=== PATIENT | male | born 1965 | race Caucasian/White ===

== ENCOUNTER 2021-07-09 11:37 | Emergency (ER) | payer OTHER, SELFPAY ==
--- NOTE | ~2021-07-09 | XR_ITS ---
EXAMINATION: XR HAND, LEFT CLINICAL INFORMATION: Trauma COMPARISON: Previous x-ray October 2013 TECHNIQUE: PA, lateral, and oblique views of the left hand. FINDINGS: The bones and soft tissues are normal. No fracture. Alignment is anatomic. Joint spaces are maintained. No erosions or soft tissue calcifications. XR/XR hand LT 2V IMPRESSION: Normal left hand.
[2021-07-09 11:42] VITALS: BP 130/100; PULSE 89; RESP 18; TEMP 36.6; O2SAT 99; BMI 33.5
--- NOTE | 2021-07-09 14:51 | ED.WOUNDLAC ---
HPI - Wound/Laceration General Chief Complaint: Wound/Laceration Stated Complaint: hand inj at work Time Seen by Provider: 07/09/21 13:48 History of Present Illness HPI narrative: Patient complains of left hand laceration when a drill bits slipped and cut into his hand with a drill at work on the job Related Data Allergies Allergy/AdvReac Type Severity Reaction Status Date / Time No Known Allergies Allergy Unverified 02/15/20 15:05 Review of Systems Review of Systems: Positive for left hand laceration Negatives are no headache no neck pain no back pain no numbness no weakness no tingling no other extremity pains Yes all other systems are reviewed and are negative PMFSH Past Medical History Source: nursing notes reviewed Social History Social History Advance Directives: No Advance Directives Information Provided: Yes Physical Exam Vital Signs: Vital Signs: Last Vital Signs Temp 98 F 07/09/21 11:42 Pulse 89 07/09/21 11:42 Resp 18 07/09/21 11:42 BP 130/100 H 07/09/21 11:42 Pulse Ox 99 07/09/21 11:42 BMI result Body Mass Index 33.5 General appearance no acute distress comfortable cooperative Head is normocephalic atraumatic Neck is supple Respiratory no distress Extremities the left hand over the dorsal 5th metacarpal has a 1.5 cm flap round laceration, there is full range of motion and all joints in the hand with normal sensation distal, normal tendon function normal motor function Course Course Course Narrative: Procedure note left hand laceration is cleansed and irrigated with normal saline Anesthesia is 5 cc of 1% lidocaine No foreign bodies were identified The skin was closed with 4 x 5.0 nylon sutures Discharge Plan Discharge Clinical Impression: Laceration Patient Disposition: Home, Self-Care Additional Instructions: Stitches out in 7-10 days at work connection for work related injury Return any time for redness swelling or any sign of infection , either to ER or to work connection You got a tetanus shot today Referrals: [facility] [Provider Group] - 1 week (Stitches out in 7-10 days) Stand Alone Forms: Work/School Release Interventions: ED Discharge Assessment Last Done: 07/09/21 15:13 Discharge Date/Time: 07/09/21 15:14
[2021-07-09] MEDS: Lidocaine HCl 1 % MPF 5 ML VIAL SUBCUT (15:08)
[2021-07-09] MEDS: Diphth,Pertus(ACell),Tet Adult 0.5 ML SYRINGE IM (15:09)
== END 2021-07-09 15:14 | disposition home or self-care (01) ==
PROVIDERS: Emergency Provider Emergency Medicine; PCP Physician Assistant
DX: S61.412A Laceration without foreign body of left hand, initial encounter (principal); W45.8XXA Other foreign body or object entering through skin, initial encounter; Y93.89 Activity, other specified; Y92.9 Unspecified place or not applicable; Y99.0 Civilian activity done for income or pay
CPT/HCPCS: 12001; 73120; 90471; 90715; 99283; 99284

== ENCOUNTER → 2021-07-14 09:27 | Outpatient (BNVA) | payer OTHER, SELFPAY | PROVIDERS: PCP Physician Assistant; Visit Provider Internal Medicine | DX: S61.215A Laceration without foreign body of left ring finger without damage to nail, initial encounter (principal); W27.8XXA Contact with other nonpowered hand tool, initial encounter | CPT/HCPCS: 99203 ==

== ENCOUNTER → 2021-07-18 09:07 | Outpatient (BNVA) | payer OTHER, SELFPAY | PROVIDERS: PCP Physician Assistant; Visit Provider Physician Assistant Medical | DX: S61.215A Laceration without foreign body of left ring finger without damage to nail, initial encounter (principal); W26.9XXA Contact with unspecified sharp object(s), initial encounter | CPT/HCPCS: 99212; 99213 ==

== ENCOUNTER 2022-08-11 10:01 | Emergency (ER) | payer OTHER, SELFPAY ==
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
[2022-08-11 10:07] VITALS: BP 191/86; PULSE 87; PULSE 93; RESP 18; TEMP 36.1; O2SAT 100; O2SAT 98; BMI 34.2
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
== END 2022-08-11 11:51 | disposition home or self-care (01) ==
PROVIDERS: Emergency Provider Emergency Medicine; PCP Physician Assistant
DX: S29.012A Strain of muscle and tendon of back wall of thorax, initial encounter (principal); V03.00XA Pedestrian on foot injured in collision with car, pick-up truck or van in nontraffic accident, initial encounter; M79.18 Myalgia, other site; Y93.29 Activity, other involving ice and snow; Y92.481 Parking lot as the place of occurrence of the external cause; Y99.0 Civilian activity done for income or pay
CPT/HCPCS: 71101; 72072; 99282; 99283

== ENCOUNTER 2023-02-17 09:27 | Outpatient (AMB) | payer OTHER, SELFPAY ==
[2023-02-17 09:30] VITALS: BP 170/90; PULSE 80; RESP 17; O2SAT 98; BMI 34.9
--- NOTE | 2023-02-17 09:30 | A.OFFPC_ITS ---
Vital Signs 02/17/23 09:30 Height 5 ft 8 in Weight 229 lb 4 oz BMI 34.9 BP 170/90 H Blood Pressure Location Lt brachial Position Sitting Respiration 17 Pulse 80 Pulse Source Pulse Oximeter Pulse Oximetry (%) 98 Oxygen Delivery Method Room Air Intake Visit Reasons: New patient-requesting physical Intake Note: Pt is here to re-establish care with PCP, elevated BP today. Overdue for Colonoscopy per [facility]. Specialty Cook Required: No Accompanied by: Self / Same As Patient Allergies No Known Allergies Allergy (Unverified 02/17/23 09:34) Tobacco use date assessed: 02/17/23 Dental Screening Dental Screen Date: 02/17/23 Did you have a dental visit in the last 12 months?: No Did you have a dental problem in the last 6 months where you did not have access to dental care?: No Was dental information given to patient?: Patient has dentist HPI New patient-requesting physical HPI Details Patient is a 57-year-old male here today to reestablish care/annual physicalv Previous PCP was Patient has a past medical history significant for COPD, tobacco dependency. -->Noted elevated blood pressure reading s today in office. Patient believes he has white coat hypertension. We did discuss the possible need of starting antihypertensive medication and patient does understand. Advised to monitor his blood pressure at home with goal blood pressure be below 140/90. .. Tobacco dependency: He does understand he needs to quit smoking. We did discuss the lung cancer screening program though patient is considering this at this time. He reports he has cut down smoking on his own. .. COPD: He does have history of COPD and was on albuterol and Advair inhalers. He does report recently having somewhat of a cough and will like a chest x-ray. He would like to be restarted on his inhalers as well. He also does have a history of obstructive sleep apnea was on a CPAP machine though he reports his CPAP machine broke. He would likely need a new sleep study as it has been years since his previous sleep study. He would like to hold off on evaluating obstructive sleep apnea at this time. Colonoscopy: Willing to do Cologuard. Vaccines: Up-to-date with COVID vaccine, tetanus vaccine, needs pneumonia vaccine PFSH Family History (Updated 02/17/23 @ 09:56 by Dante Hill PA-C) Mother CAD (coronary artery disease) Father CAD (coronary artery disease) Social History (Updated 02/17/23 @ 09:57 by Dante Hill PA-C) Housing: House Alcohol intake: current Alcohol intake frequency: a few times a month Patient Tobacco Use Status: Current everyday Tobacco user Tobacco use type: Cigarette Cigarette Packs Per Day: 1 Cigarettes Per Day: 20 Years Smoked: 30 e-Cigarette/Vaping Use: Never Used service: No Current occupational status: employed 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 1. Little interest or pleasure in doing things: not at all 2. Feeling down, depressed, or hopeless: not at all 3. Trouble falling or staying asleep, or sleeping too much: not at all 4. Feeling tired or having little energy: not at all 5. Poor appetite or overeating: not at all 6. Feeling bad about yourself - or that you are a failure or have let yourself or your family down: not at all 7. Trouble concentrating on things, such as reading the newspaper or watching television: not at all 8. Moving or speaking so slowly that other people could have noticed. Or the opposite - being so fidgety or restless that you have been moving around a lot more than usual: not at all 9. Thoughts that you would be better off or of hurting yourself in some way: not at all Total score: 0 Depression Screening Interpretation: Negative 55603 - PHQ-9 Billing: Yes Source: Developed by Drs. Yuri Aviles, Kristina Hess, Emmanuel Diaz and colleagues, with an educational dillon from [employer]. Thrive Questionnaire Date Thrive assessed: 02/17/23 I am a: Patient What is your living situation today?: I have a steady place to live Within the past 12 months, did the food you bought not last and you didn't have the money to get more?: Never true Within the past 12 months, did you worry whether your food would run out before you got money to buy more?: Never true Do you have trouble paying for medicines?: No Do you have trouble getting transportation to medical appointments?: No Do you have trouble paying your heating and electricity bill?: No Do you have trouble taking care of your child, family member or friend?: No Do you have trouble with day-to-day activities such as bathing, preparing meals, shopping, managing finances, etc.?: No Are you currently unemployed and looking for a job?: No Are you interested in more education?: No Please select the resources that you would like help with: None Currently or been in a relationship where the following occur: no concerns reported AUDIT C Alcohol Use Questionnaire (AUDIT-C) 1. How often do you have a drink containing alcohol?: Monthly or less 2. How many drinks containing alcohol do you have on a typical day when you are drinking?: 1 or 2 3. How often do you have six or more drinks on one occasion?: Never Total Score: 1 SONJA-7 AMB Questionnaire SONJA-7 Date SONJA - 7 assessed: 02/17/23 Feeling nervous, anxious, or on edge: 0 = Not at all Not being able to stop or control worryin = Not at all Worrying too much about different things: 0 = Not at all Trouble relaxin = Not at all Being so restless that it is hard to sit still: 0 = Not at all Becoming easily annoyed or irritable: 0 = Not at all Feeling afraid as if something awful might happen: 0 = Not at all Total SONJA-7 score (0-4 normal; 5-9 mild; 10-14 moderate; 15-21 severe): 0 Source: Developed by Drs. Yuri Aviles, Kristina Hess, Emmanuel Diaz and colleagues, with an educational dillon from [employer]. SONJA-7 Assessment Billing SONJA-7 Assessment Tool: SONJA-7 Assessment [id number] Review of Systems Const Denies excessive sweating, Denies fatigue and Denies headache(s) Eyes Denies loss of vision ENT Denies vertigo, Denies dizziness, Denies headache(s) and Denies sore throat Card Denies chest pain, Denies leg edema and Denies lightheadedness Resp Denies cough, Denies hemoptysis and Denies wheezing GI Denies abdominal pain, Denies melena, Denies constipation, Denies diarrhea and Denies vomiting Denies dysuria, Denies urinary frequency and Denies urinary urgency Musc Denies arthralgias, Denies joint swelling, Denies numbness and Denies tingling Skin/Breast Denies rash and Denies skin ulcer Neuro Denies Abnormal speech present, Denies behavioral changes, Denies vertigo, Denies dizziness, Denies headache(s), Denies loss of vision, Denies memory loss, Denies numbness and Denies tingling Psych Denies anxiety, Denies behavioral changes, Denies depression, Denies memory loss and Denies panic attacks Endo Denies excessive sweating, Denies fatigue, Denies flushing, Denies polydipsia and Denies polyuria Frederic/Lymph Denies easy bleeding and Denies easy bruising Aller/Immun Denies wheezing Physical exam (Primary Care) Vital Signs: Last Vital Signs Pulse 80 02/17/23 09:30 Resp 17 02/17/23 09:30 BP 170/90 H 02/17/23 09:30 Pulse Ox 98 02/17/23 09:30 Oxygen Delivery Method Room Air 02/17/23 09:30 BMI result Body Mass Index 34.9 BMI Assessment/Plan discussion: High Tobacco/Smoking Status: Tobacco use Status Tobacco use date assessed 02/17/23 02/17/23 09:41 Patient Tobacco Use Status Current everyday Tobacco 02/17/23 09:57 Tobacco use type Cigarette 02/17/23 09:57 e-Cigarette/Vaping Use Never Used 02/17/23 09:57 Are you ready to quit: No Tobacco cessation counseling provided: Yes Relapse Prevention: discussed the importance of a supportive environment, weight gain after smoking is common and discussed dietary, exercise and/or lifestyle changes Number of minutes spent counselin CPT code: 39589 - 4-10 Minutes PHQ-9: PHQ-9 Score PHQ-9: Total score 0 02/17/23 10:01 Depression Screening Interpretation: Negative Thrive Assessment: Date of Thrive Assessment Date Thrive assessed 02/17/23 02/17/23 09:41 Currently or been in a relationship where the following occur: no concerns reported Const General: healthy appearing, no acute distress, alert and awake Nutritional Appearance: well nourished Orientation/consciousness: oriented to person, oriented to place and oriented to time HENNM Head: Yes normocephalic Ears: TM's normal bilaterally General nose exam: Normal nasal mucous membranes and turbinates present Face and sinus: No sinus tenderness Mouth: Normal oral and palatal mucosa present and tongue normal Teeth and gingiva: dentition normal and gingiva normal Throat: Yes posterior oropharynx normal, Yes tonsils normal and Yes uvula midline Eyes Conjunctivae: conjunctivae normal Sclerae: sclerae normal Pupils: Equal, round and reactive pupils present EOM: EOMs intact bilaterally Direct Ophthalmoscopy: No no photophobia Neck Neck: Yes no lymphadenopathy and Yes no JVD Thyroid: Thyroid normal Carotids: no bruits Chest Chest palpation & inspection: no tenderness Resp Effort & Inspection: normal respiratory effort and not tachypneic Auscultation: no crackles, no rales, no rhonchi and no wheezes Cardio Jugular venous distension: no JVD Rate: regular rate Rhythm: regular rhythm Heart sounds: no murmurs and normal S1 and S2 Bruits: no carotid bruits Peripheral pulses: Peripheral pulses 2+ throughout GI Inspection: Yes normal to inspection, No abdominal wall ecchymosis and No visible herniation Palpation (GI): Soft to palpation, nontender, no hepatomegaly and no splenomegaly Auscultation: normal bowel sounds General: Yes no CVA tenderness Back/Spine/Pelvis Back: no CVA tenderness and No back tenderness Cervical Spine: cervical ROM normal Thoracic/Lumbar Spine: thoracic and lumbar spine normal to inspection, straight leg raise negative bilaterally, No thoraco-lumbar ROM limited and No lumbar spinal tenderness Skin General skin exam: no rashes or lesions noted and dry skin Lesions: no lesions Rashes: no rashes Wounds: no wounds Neuro General: oriented to person, oriented to place and oriented to time Cranial nerves: Yes Equal, round and reactive pupils present Cognition (Neuro): normal cognition Speech: No Abnormal speech present Gait exam (Neuro): Normal gait present Motor exam (neuro): no tremor noted Extrem Right upper extremity: full ROM Left upper extremity: full ROM Right lower extremity: full ROM; no edema Left lower extremity: full ROM; no edema Psych Appearance: grossly normal Mental Status: mental status grossly normal Speech and movement: Normal speech and movement present Affect: normal affect Attitude: cooperative Thought process: Normal thought process present Assessment and Plan Assessment & Plan (1) Annual physical exam: Code(s): Z00.00 - Encounter for general adult medical examination without abnormal findings (2) Obese: Code(s): E66.9 - Obesity, unspecified Qualifiers: Body mass index: BMI 34.0-34.9 Obesity classification: adult class 1 (BMI 30 - 34.9) Obesity type: due to excess calories Serious obesity comorbidity presence: without serious comorbidity Qualified Code(s): E66.09 - Other obesity due to excess calories; Z68.34 - Body mass index [BMI] 34.0-34.9, adult Plan: Patient does understand his BMI is over 30 will work on being more physically active and adapting to better eating habits to reduce his weight (3) Elevated blood pressure reading: Code(s): R03.0 - Elevated blood-pressure reading, without diagnosis of hypertension Plan: As per HPI we have noted elevated blood pressure readings today in office. Has had elevated blood pressure readings when he has come in to MD visits. He will monitor blood pressure at home and if elevated will consider starting antihypertensive medication. Goal blood pressure to be below 140/90 (4) Colon cancer screening: Code(s): Z12.11 - Encounter for screening for malignant neoplasm of colon Plan: Patient willing to do Cologuard (5) Screening for diabetes mellitus (DM): Code(s): Z13.1 - Encounter for screening for diabetes mellitus (6) Tobacco dependence: Code(s): F17.200 - Nicotine dependence, unspecified, uncomplicated Plan: He does understand he needs to quit smoking. Declines my offers to start nicotine replacement therapy or medication. We did discuss starting the lung cancer screening program and he will discuss this with his and get back to us. (7) COPD (chronic obstructive pulmonary disease): Code(s): J44.9 - Chronic obstructive pulmonary disease, unspecified Qualifiers: COPD type: chronic bronchitis Chronic bronchitis type: simple Qualified Code(s): J41.0 - Simple chronic bronchitis Plan: He does have some symptoms COPD likely secondary to his years of smoking. Will start him back on maintenance inhaler and p.r.n. use of albuterol inhaler. Of note also does a history of obstructive sleep apnea and was on CPAP machine nightly though reports his machine is broken and has not gotten a new machine. Likely will need a new sleep study (8) Low libido: Code(s): R68.82 - Decreased libido Plan: Patient does report low libido and difficulty with losing weight. Will check his testosterone to assure within appropriate range. (9) Fatigue: Code(s): R53.83 - Other fatigue Qualifiers: Fatigue type: chronic, unspecified Qualified Code(s): R53.82 - Chronic fatigue, unspecified (10) KAN (obstructive sleep apnea): Code(s): G47.33 - Obstructive sleep apnea (adult) (pediatric) Plan: As above (11) Family history of coronary artery disease: Code(s): Z82.49 - Family history of ischemic heart disease and other diseases of the circulatory system Plan: He does have family history of coronary artery disease in his mother and father. Due to his elevated blood pressures and smoking history will strongly consider statin therapy though patient would like to hold off for now. Will recheck his lipid panel with goal LDL to be below 130 Orders: Orders Complete Blood Count no Diff 02/17/23 Z13.1 - Encounter for screening for diabetes mellitus IRON PROFILE 02/17/23 D50.9 - Iron deficiency anemia, unspecified, R53.82 - Chronic fatigue, unspecified XR chest 2V 02/17/23 J44.9 - Chronic obstructive pulmonary disease, unspecified Comprehensive Stephen. Panel Fast 02/17/23 Z13.1 - Encounter for screening for diabetes mellitus Testosterone, Free/Total 02/17/23 R68.82 - Decreased libido Prostate Specific Antigen Scr 02/17/23 R68.82 - Decreased libido, Z12.5 - Encounter for screening for malignant neoplasm of prostate Lipid Panel 02/17/23 Z82.49 - Family history of ischemic heart disease and other diseases of the circulatory system Referrals Cologuard Test Z12.11 - Encounter for screening for malignant neoplasm of colon Medications: New albuterol sulfate 90 mcg/actuation (Ventolin HFA) 1 inh inhalation QID 30 days 8.5 grams 1RF J44.9 - Chronic obstructive pulmonary disease, unspecified fluticasone propion-salmeterol 100-50 mcg/dose (Advair Diskus) 1 inh inhalation BID 30 days 60 ea 3RF J41.0 - Simple chronic bronchitis Coding Level of Care Code New Pt Prev Care 40-64y(64600) Diagnoses Annual physical exam Z00.00 Class 1 obesity due to excess calories without serious comorbidity with body mass index (BMI) of 34.0 to 34.9 in adult E66.09; Z68.34 Body mass index: BMI 34.0-34.9 Obesity classification: adult class 1 (BMI 30 - 34.9) Obesity type: due to excess calories Serious obesity comorbidity presence: without serious comorbidity Elevated blood pressure reading R03.0 Colon cancer screening Z12.11 Screening for diabetes mellitus (DM) Z13.1 Tobacco dependence F17.200 Simple chronic bronchitis J41.0 COPD type: chronic bronchitis Chronic bronchitis type: simple Low libido R68.82 Chronic fatigue R53.82 Fatigue type: chronic, unspecified KAN (obstructive sleep apnea) G47.33 Family history of coronary artery disease Z82.49 Additional Codes SONJA-7 Assessment Billing - SONJA-7 Assessment Tool: SONJA-7 Assessment [id number] ([id number]) Vital Signs *Quality* - CPT code: 12351 - 4-10 Minutes ([id number])
== END 2023-02-17 10:15 | disposition home or self-care (01) ==
PROVIDERS: PCP Physician Assistant; Visit Provider Physician Assistant
DX: Z00.00 Encounter for general adult medical examination without abnormal findings (principal); E66.09 Other obesity due to excess calories; Z68.34 Body mass index [BMI] 34.0-34.9, adult; F17.200 Nicotine dependence, unspecified, uncomplicated; Z82.49 Family history of ischemic heart disease and other diseases of the circulatory system; R03.0 Elevated blood-pressure reading, without diagnosis of hypertension; Z12.11 Encounter for screening for malignant neoplasm of colon; J41.0 Simple chronic bronchitis; Z13.1 Encounter for screening for diabetes mellitus; R68.82 Decreased libido; R53.82 Chronic fatigue, unspecified; G47.33 Obstructive sleep apnea (adult) (pediatric)
CPT/HCPCS: 99386

== ENCOUNTER 2023-02-17 10:28 | Outpatient (REF) | payer OTHER, SELFPAY ==
--- NOTE | ~2023-02-17 | XR_ITS ---
EXAMINATION: XR CHEST CLINICAL INFORMATION: COPD. Chronic obstructive pulmonary disease. COMPARISON: Chest radiograph dated 05/06/2017. Chest and rib radiographs dated 08/11/2022. TECHNIQUE: 2 views of the chest were obtained. FINDINGS: Mild patchy opacities within the right lung base, slightly increased when compared to the prior examination. Findings could represent atelectasis versus very early infiltrates. No pleural effusion or pneumothorax. Stable cardiomediastinal silhouette. XR/XR chest 2V IMPRESSION: Mild patchy opacities within the right lung base, slightly increased when compared to the prior examination. Findings could represent atelectasis versus very early infiltrates.
[2023-02-17 11:21] LABS: Hematocrit 47.4 % (42.0-52.0); Hemoglobin 16.4 g/dl (14.0-18.0); Mean Corpuscular HGB Conc 34.6 g/dl (31.0-36.0); Mean Corpuscular Hemoglobin 33.3 pg (27.0-33.0); Mean Corpuscular Volume 96.1 fL (80.0-98.0); Mean Platelet Volume 10.7 fL (9.4-12.4); Platelet Count 207 X10*3/uL (160-400); Red Blood Count 4.93 X10*6/uL (4.60-5.80); Red Cell Distribution Width 12.9 % (11.0-16.0); White Blood Count 5.7 X10*3/uL (4.8-10.8)
[2023-02-17 13:20] LABS: Alanine Aminotransferase 22 U/L (0-40); Albumin Level 4.2 g/dL (3.5-5.0); Alkaline Phosphatase 65 U/L (39-117); Anion Gap 12 (12-20); Aspartate Amino Transferase 18 U/L (5-37); Bilirubin Total 0.4 mg/dL (0.0-1.0); Blood Urea Nitrogen 8 mg/dL (9-16); Calcium 9.4 mg/dL (8.4-10.2); Carbon Dioxide 23 mmol/L (22-29); Chloride 110 mmol/L (96-108); Cholesterol 161 mg/dL (<200); Estimated Glomerular Filt Rate > 60; Glucose Fasting 113 mg/dL (60-99); HDL Cholesterol 65 mg/dL (>40); Iron 101 mcg/dL (45-160); LDL Cholesterol Calculated 86 mg/dL (<100); Percent Iron Saturation 34 % (15-50); Potassium 3.9 mmol/L (3.3-5.1); Prostate Specific Antigen Scr 0.67 ng/mL (<0.05-4.0); Sodium 141 mmol/L (135-145); Total Iron Binding Capacity 293 mcg/dL (228-428); Total Protein 6.8 g/dL (6.5-8.0); Triglycerides 54 mg/dL (<150); Unsaturated Iron Binding 192 ug/dL
[2023-02-21 15:48] LABS: Testosterone, Total 639 ng/dL (250-1100)
== END 2023-02-17 10:29 | disposition home or self-care (01) ==
LOC: HO.LAB 10:28
PROVIDERS: PCP Physician Assistant; Visit Provider Physician Assistant
DX: Z13.1 Encounter for screening for diabetes mellitus (principal); Z12.5 Encounter for screening for malignant neoplasm of prostate; J44.9 Chronic obstructive pulmonary disease, unspecified; D50.9 Iron deficiency anemia, unspecified; R53.82 Chronic fatigue, unspecified; R68.82 Decreased libido; Z82.49 Family history of ischemic heart disease and other diseases of the circulatory system; F17.200 Nicotine dependence, unspecified, uncomplicated
CPT/HCPCS: 36415; 71046; 80053; 80061; 83540; 84153; 84402; 84403; 85027

== ENCOUNTER 2023-04-07 11:09 | Outpatient (AMB) | payer OTHER, SELFPAY ==
[2023-04-07 11:18] VITALS: BP 170/90; O2SAT 98; BMI 34.4
--- NOTE | 2023-04-07 11:18 | A.OFFPC_ITS ---
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 -->Noted elevated blood pressure reading s today in office. Patient believes he has white coat hypertension. We did discuss the possible need of starting antihypertensive medication and patient does understand. He is not interested in medication at this time. He reports that home blood pressure readings are much better.. Advised to monitor his blood pressure at home with goal blood pressure be below 140/90. .. Tobacco dependency: He does understand he needs to quit smoking. Has scheduled with the lung cancer screening program and has upcoming appointment for CT chest. He reports he has cut down smoking on his own. .. COPD: Has restarted his maintenance inhaler he reports his pulmonary symptoms are much improved. He does understand he needs to quit smoking. Colonoscopy: Willing to do Cologuard. Vaccines: Up-to-date with COVID vaccine, tetanus vaccine, needs Flu, needs pneumonia vaccine though declines Laboratory Tests 02/17/23 10:44 RBC 4.93 Hgb 16.4 Fasting Glucose 113 H LDL Cholesterol, C alc 86 PSA Screen 0.67 Total Testosterone 639 PFS Medical History (Updated 04/07/23 @ 16:42 by Dante Hill PA-C) KAN (obstructive sleep apnea) Family History Mother CAD (coronary artery disease) Father CAD (coronary artery disease) Social History (Updated 04/07/23 @ 11:40 by Dante Hill PA-C) Housing: House Alcohol intake: current Alcohol intake frequency: a few times a month Alcohol type: beer Patient Tobacco Use Status: Current everyday Tobacco user Tobacco use type: Cigarette Cigarette Packs Per Day: 1 Cigarettes Per Day: 20 Years Smoked: 30 e-Cigarette/Vaping Use: Never Used service: No Current occupational status: employed 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 Yuri Aviles, Kristina Hess, Emmanuel Diaz and colleagues, with an educational dillon from [employer]. Review of Systems Const Denies body aches, Denies chills, Denies excessive sweating, Denies fatigue, Denies fever(s) and Denies headache(s) Eyes Denies blurry vision ENT Denies dysphagia, Denies vertigo, Denies dizziness, Denies headache(s), Denies hearing loss and Denies tinnitus Card Denies chest pain, Denies chest pain with activity, Denies syncope, Denies irregular heart rhythm and Denies dyspnea Resp Denies chest congestion, Denies cough, Denies hemoptysis, Denies dyspnea and Denies wheezing GI Denies abdominal pain, Denies melena, Denies hematochezia, Denies coffee ground emesis, Denies dysphagia, Denies diarrhea, Denies nausea and Denies vomiting Denies difficulty urinating, Denies dysuria, Denies urinary frequency, Denies urinary hesitancy and Denies urinary urgency Musc Denies arthralgias, Denies limited range of motion, Denies muscle cramps and Denies muscle weakness Skin/Breast Denies rash and Denies skin ulcer Neuro Denies Abnormal speech present, Denies confusion, Denies vertigo, Denies dizziness, Denies syncope, Denies headache(s), Denies memory loss and Denies seizure-like activity Psych Denies anxiety, Denies confusion, Denies depression, Denies memory loss, Denies panic attacks and Denies paranoia Endo Denies excessive sweating, Denies fatigue, Denies flushing, Denies polydipsia and Denies polyuria Aller/Immun Denies wheezing Physical exam (Primary Care) Vital Signs: Last Vital Signs BP 170/90 H 04/07/23 11:18 Pulse Ox 98 04/07/23 11:18 Oxygen Delivery Method Room Air 04/07/23 11:18 BMI result Body Mass Index 34.4 BMI Assessment/Plan discussion: High Tobacco/Smoking Status: Tobacco use Status Tobacco use date assessed 02/17/23 04/07/23 11:19 Patient Tobacco Use Status Current everyday Tobacco 04/07/23 11:19 Tobacco use type Cigarette 04/07/23 11:19 e-Cigarette/Vaping Use Never Used 04/07/23 11:19 Are you ready to quit: No Tobacco cessation counseling provided: Yes Items discussed: Nicotine replacement Relapse Prevention: discussed the importance of a supportive environment, weight gain after smoking is common and discussed dietary, exercise and/or lifestyle changes Number of minutes spent counselin CPT code: 46806 - 4-10 Minutes Thrive Assessment: Date of Thrive Assessment Date Thrive assessed 02/17/23 04/07/23 11:19 Const General: cooperative, comfortable, no acute distress, alert and awake; No confusion Orientation/consciousness: oriented to person, oriented to place, patient oriented x3 and No confusion HENMT Head: Yes normocephalic Ears: external ears normal and TM's normal bilaterally Face and sinus: No sinus tenderness Mouth: Normal oral and palatal mucosa present and tongue normal Teeth and gingiva: dentition normal and gingiva normal Throat: Yes posterior oropharynx normal, Yes tonsils normal and Yes uvula midline Eyes Conjunctivae: conjunctivae normal Sclerae: sclerae normal Pupils: Equal, round and reactive pupils present EOM: EOMs intact bilaterally Direct Ophthalmoscopy: No no photophobia Neck Neck: Yes no lymphadenopathy, No tender and Yes no JVD Thyroid: Thyroid normal Carotids: no bruits Chest Chest palpation & inspection: no tenderness Resp Effort & Inspection: normal respiratory effort, no audible wheezes, not labored and no stridor Auscultation: no crackles, no rales, no rhonchi and no wheezes Cardio Jugular venous distension: no JVD Rate: regular rate, not bradycardic and not tachycardic Rhythm: regular rhythm Bruits: no carotid bruits Peripheral pulses: Peripheral pulses 2+ throughout GI Inspection: Yes normal to inspection, No abdominal wall ecchymosis and No visible herniation Palpation (GI): Soft to palpation, nontender, no guarding, not rigid and No he patosplenomegaly present Auscultation: normoactive bowel sounds General: Yes no CVA tenderness Back/Spine/Pelvis Back: no CVA tenderness and No back tenderness Cervical Spine: cervical ROM normal Thoracic/Lumbar Spine: thoracic and lumbar spine normal to inspection, straight leg raise negative bilaterally, No thoraco-lumbar ROM limited and No lumbar spinal tenderness Skin Lesions: no lesions Rashes: no rashes Wounds: no wounds Neuro General: oriented to person, oriented to place, patient oriented x3, CN's II-XI intact bilaterally and No confusion Cranial nerves: Yes Equal, round and reactive pupils present and Yes Normal accommodation reflex present Cognition (Neuro): normal cognition Speech: No Abnormal speech present Gait exam (Neuro): Normal gait present Motor exam (neuro): 5/5 motor strength present throughout Extrem Right upper extremity: full ROM; no cyanosis Left upper extremity: full ROM; no cyanosis Right lower extremity: no edema Left lower extremity: no edema Psych Appearance: grossly normal Mental Status: mental status grossly normal Affect: normal affect Attitude: cooperative Thought process: Normal thought process present Assessment and Plan Assessment & Plan (1) COPD (chronic obstructive pulmonary disease): Code(s): J44.9 - Chronic obstructive pulmonary disease, unspecified Qualifiers: COPD type: chronic bronchitis Chronic bronchitis type: simple Qualified Code(s): J41.0 - Simple chronic bronchitis Plan: Since starting maintenance inhaler his breathing has been much improved. He has been trying to reduce his cigarette smoking though still smoking nearly a pack of cigarettes per day. (2) Obese: Code(s): E66.9 - Obesity, unspecified Qualifiers: Obesity type: due to excess calories Obesity classification: adult class 1 (BMI 30 - 34.9) Serious obesity comorbidity presence: without serious comorbidity Body mass index: BMI 34.0-34.9 Qualified Code(s): E66.09 - Other obesity due to excess calories; Z68.34 - Body mass index [BMI] 34.0-34.9, adult Plan: Patient does understand his BMI is over 30 will work on being more physically active and adapting to better eating habits to reduce his weight (3) Elevated blood pressure reading: Code(s): R03.0 - Elevated blood-pressure reading, without diagnosis of hypertension Plan: As per HPI we have noted elevated blood pressure readings today in office. Has had elevated blood pressure readings when he has come in to MD visits. He reports he does from time to time check his blood pressure at home and reports normal readings. He is not interested in starting medication for his blood pressure at this time and would like to continue monitoring blood pressure at home with goal blood pressure to be below 140/90 (4) Colon cancer screening: Code(s): Z12.11 - Encounter for screening for malignant neoplasm of colon Plan: Has Cologuard box at home. (5) Screening for diabetes mellitus (DM): Code(s): Z13.1 - Encounter for screening for diabetes mellitus (6) Tobacco dependence: Code(s): F17.200 - Nicotine dependence, unspecified, uncomplicated Plan: He does understand he needs to quit smoking. He is now willing to try nicotine gum. Has upcoming appointment with lung cancer screening program for CT screening. (7) Family history of coronary artery disease: Code(s): Z82.49 - Family history of ischemic heart disease and other diseases of the circulatory system Plan: Patient's most recent fasting lipid panel showing good total cholesterol and LDL. Orders: Orders Complete Blood Count no Diff Today J41.0 - Simple chronic bronchitis Comprehensive Allons. Panel Fast Today Z13.1 - Encounter for screening for diabetes mellitus Medications: New alprazolam 0.5 mg PO DAILY 1 day PRN 1 tab 0RF anxiety nicotine (polacrilex) 4 mg buccal Q2H 30 days PRN 110 ea 0RF nicotine cravings F17.200 - Nicotine dependence, unspecified, uncomplicated Coding Level of Care Code Est Pt Level 4 (48218) Diagnoses Simple chronic bronchitis J41.0 COPD type: chronic bronchitis Chronic bronchitis type: simple Class 1 obesity due to excess calories without serious comorbidity with body mass index (BMI) of 34.0 to 34.9 in adult E66.09; Z68.34 Obesity type: due to excess calories Obesity classification: adult class 1 (BMI 30 - 34.9) Serious obesity comorbidity presence: without serious comorbidity Body mass index: BMI 34.0-34.9 Elevated blood pressure reading R03.0 Colon cancer screening Z12.11 Screening for diabetes mellitus (DM) Z13.1 Tobacco dependence F17.200 Family history of coronary artery disease Z82.49 Additional Codes Vital Signs *Quality* - CPT code: 84484 - 4-10 Minutes ([id number])
== END 2023-04-07 11:57 | disposition home or self-care (01) ==
PROVIDERS: PCP Physician Assistant; Visit Provider Physician Assistant
DX: J41.0 Simple chronic bronchitis (principal); E66.09 Other obesity due to excess calories; Z68.34 Body mass index [BMI] 34.0-34.9, adult; R03.0 Elevated blood-pressure reading, without diagnosis of hypertension; Z12.11 Encounter for screening for malignant neoplasm of colon; Z13.1 Encounter for screening for diabetes mellitus; F17.200 Nicotine dependence, unspecified, uncomplicated; Z82.49 Family history of ischemic heart disease and other diseases of the circulatory system
CPT/HCPCS: 99214; 99406

== ENCOUNTER 2023-05-07 09:57 | Outpatient (AMB) | payer OTHER, SELFPAY ==
--- NOTE | 2023-05-07 10:07 | A.OFFVIS_ITS ---
Intake Intake Visit Reasons: LDCT SD Allergies No Known Allergies Allergy (Verified 04/07/23 11:35) HPI HPI Comments History of Present Illness Details William is a pleasant 57 year old male, current 1 ppd smoker with a 42 PYH. Patient has been smoking since age 15 for 42 years at 1 ppd. Patient reports vaping as well. Denies marijuana use. Denies exposure to chemicals or substances like asbestos. Admits second hand smoke exposure. Denies known family history of lung cancer. Denies personal history of cancers. Denies chest CT in last year. Denies recent travel outside the [place]. Denies testing positive for COVID. Admits receiving COVID Vaccine x 4. Denies fever, chills, chest pain, new cough, hemoptysis or unintentional weight loss. Lung Cancer Screening Questionnaire reviewed with patient by provider. Shared Decision Making Completed. Discussed in detail with patient, the risk versus benefit of LDCT screening. Patient in agreement of proceeding with scan. [facility] Medical History (Updated 04/12/23 @ 14:46 by Velma Carlson PA-C) Nicotine dependence, cigarettes, uncomplicated Obese KAN (obstructive sleep apnea) Surgical History (Updated 04/12/23 @ 14:44 by Velma Carlson PA-C) History of hand surgery Family History Mother CAD (coronary artery disease) Father CAD (coronary artery disease) Social History (Updated 04/07/23 @ 11:40 by Dante Hill PA-C) Housing: House Alcohol intake: current Alcohol intake frequency: a few times a month Alcohol type: beer Patient Tobacco Use Status: Current everyday Tobacco user Tobacco use type: Cigarette Cigarette Packs Per Day: 1 Cigarettes Per Day: 20 Years Smoked: 30 e-Cigarette/Vaping Use: Never Used service: No Current occupational status: employed 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 This patient meets criteria for LDCT for lung cancer screening purposes and is asymptomatic. Offered smoking cessation. Patient has been scheduled for a low dose chest CT for screening purposes at [facility]. We discussed how the results will be obtained depending on CT findings. RADS 1 and RADS 2 will receive a letter with results and will follow up for annual LDCT. Patient informed they will be contacted at later date to schedule upcoming LDCT scan. RADS 3 and RADS 4 will receive a telephone call, or an office visit after reviewing case at our Lung Cancer Conference to determine when the next LDCT will be scheduled or further interventions that may be needed. Discussed importance of screening program and compliance with yearly LDCT scan as scheduled. Risks, benefits, and alternatives were discussed in detail and patient agrees to proceed. Risks discussed include but are not limited to: radiation exposure and possibility of additional intervention for benign disease. Benefits include detection of lung cancer at an early stage. A copy of today's visit and LDCT results will be sent to patient's PCP. Incidental findings on LDCT are PCP's responsibility. If there are incidental findings, our office will ensure that PCP office is aware of these findings. All questions were answered and patient is in agreement of plan. Coding Level of Care Code Lung Cancer Screening G0296 Diagnoses Nicotine dependence, cigarettes, uncomplicated F17.210
== END 2023-05-07 10:21 | disposition home or self-care (01) ==
PROVIDERS: PCP Physician Assistant; Visit Provider Nurse Practitioner Family
DX: F17.210 Nicotine dependence, cigarettes, uncomplicated (principal)
CPT/HCPCS: G0296

== ENCOUNTER 2023-05-07 10:23 | Outpatient (REF) | payer OTHER, SELFPAY ==
--- NOTE | ~2023-05-07 | CT_ITS ---
EXAMINATION: CT CHEST LOW-DOSE SCREENING WITHOUT CONTRAST HISTORY: Asymptomatic patient meeting criteria for lung screening. PATIENT PACK-YEAR HISTORY: 37 Current Smoker: Yes If former smoker, years since quitting: COMPARISON: None TECHNIQUE: Multidetector volumetric non-contrast CT imaging of the chest was performed using low dose screening CT technique. Axial thin section 0.625 mm reformations in soft tissue and lung windows were obtained. Sagittal and coronal reformations were obtained. Axial MIP images were also created and reviewed. RECONSTRUCTED WIDTH: 1.25 mm x 1.25 mm TOTAL EXAM DLP: 64 mGy-cm CTDIvol: 1.65 L mGy FINDINGS: LUNGS: Mild centrilobular emphysema. No suspicious pulmonary nodule. No focal consolidation. Central airways are patent. PLEURA: No pleural effusion. LYMPH NODES: No bulky mediastinal, hilar or axillary lymphadenopathy. MEDIASTINUM: Great vessels are of normal caliber. Heart size is normal. No pericardial effusion. CORONARY ARTERY CALCIFICATIONS: Mild. CHEST WALL/BREASTS: No acute abnormality. UPPER ABDOMEN: This study was performed without contrast and with lower than standard dose, reducing the sensitivity for detection of small lesions in the upper abdomen. OSSEOUS STRUCTURES: No destructive bone lesions. CT/CT lung screening IMPRESSION: No suspicious pulmonary nodule. LUNG-RADS CATEGORY ASSESSMENT: 1. Negative. No nodules or definitely benign nodules. Continue annual screening with low-dose CT in 12 months. Probability of malignancy less than 1%. INCIDENTAL FINDINGS (S CATEGORY): Finding: No incidental findings. Significance category: Normal or normal variant. RECOMMENDATION: Low dose lung CT. overall in 1 year. Visual estimate of coronary calcified plaque burden: Mild. However, this exam cannot replace a dedicated cardiac CT calcium score for accurate assessment. LUNG-RADS CATEGORY: 1 -- NEGATIVE
== END 2023-05-07 10:24 | disposition home or self-care (01) ==
LOC: HO.CT 10:23
PROVIDERS: PCP Physician Assistant; Visit Provider Nurse Practitioner Family
DX: Z12.2 Encounter for screening for malignant neoplasm of respiratory organs (principal); F17.210 Nicotine dependence, cigarettes, uncomplicated
CPT/HCPCS: 71271; G0296